=== PATIENT | male | born 1990 | race Caucasian/White ===

== ENCOUNTER 2017-02-12 15:04 | Emergency (ER) | payer OTHER ==
[2017-02-12] MEDS ORDERED: ONDANSETRON HCL 4 MG/2 ML VIAL ONE (15:43)
[2017-02-12 15:57] LABS: BLOOD UREA NITROGEN 19 mg/dL (9-20); CHLORIDE 107 mmol/L (98-107); EST GLOMERULAR FILTRATION RATE > 60 mL/min; GLUCOSE 133 mg/dL (70-100); POTASSIUM 3.9 mmol/L (3.5-5.1); SODIUM 140 mmol/L (137-145)
--- NOTE | 2017-02-12 17:15 | ER NURSING DOCUMENTATION ---
Nurse's Notes [facility] Name:Moises Jacinto Age:26 yrs Sex:Male :1990 Arrival Date:02/12/2017 Time:15:04 Bed1 Private MD:Jl Wallis Diagnosis:Vomiting - Dehydration Presentation: 02/12 15:08 Acuity: GARY 3 rh 15:39 Presenting complaint: Patient states: Nausea, vomiting diarrhea. Transition of care: lp Home. 15:39 Method Of Arrival: Private Vehicle lp Triage Assessment: 15:40 General: Appears in no apparent distress, Behavior is appropriate for age. Pain: lp Complains of pain in right upper quadrant and left upper quadrant. EENT: No deficits noted. GI: Abdomen is flat, non- distended Reports diarrhea, nausea, vomiting. Historical: - Allergies: No known drug Allergies; - Home Meds: 1. Adderall XR 20 mg oral cp24 1 cap once daily - PMHx: ADD; - PSHx: None; - Tetanus: < 10 years. - Ebola Screening: : Patient negative for fever greater than or equal to 101.5 degrees Fahrenheit, and additional compatible Ebola Virus Disease symptoms. Patient denies exposure to infectious person. Patient denies travel to an Ebola-affected area in the 21 days before illness onset. . - Immunization history: Flu Vaccine < 1 year. - Social history: Smoking status: Patient states was never smoker of tobacco. Screenin:41 Infectious Disease Risk None. Abuse screen: Denies threats or abuse. Denies injuries lp from another. Nutritional screening: No deficits noted. Assessment: 15:41 See Triage Assessment done by same RN. lp Vital Signs: 15:40 BP 109 / 72; Pulse 113; Resp 14; Temp 98.9; Pulse Ox 95% on R/A; Weight 75.3 kg; Height lp 6 ft. 6 in. (198.12 cm); Pain 2/10; 17:14 BP 109 / 71; Pulse 100; Resp 15; Pulse Ox 95% on R/A; Pain 1/10; rh 15:40 Body Mass Index 19.18 (75.30 kg, 198.12 cm) lp ED Course: 15:05 Patient arrived in ED. dp 15:05 Jl Wallis MD is Private Physician. dp 15:07 Kenney Resendez MD is Attending Physician. collins 15:08 Triage completed. 15:18 Guerita Rodriguez RN is Primary Nurse. lp 15:41 Valuables Remains with patient Patient has correct armband on for positive lp identification. Placed in gown. Bed in low position. 16:48 Jl Wallis MD is Referral Physician. Administered Medications: 15:34 Drug: Ondansetron 4 mg; Route: IVP; Infused Over: 2 mins; Site: right antecubital; lp 15:34 Drug: NS 0.9% 1000 ml; Route: IV; Rate: bolus; Site: right antecubital; lp 16:23 Follow up: Response: No adverse reaction; No change in condition; IV Status: Completed lp infusion; IV Intake: 1000ml 16:24 Drug: NS 0.9% 1000 ml; Route: IV; Rate: bolus; Site: right antecubital; lp Intake: 16:23 IV: 1000ml; Total: 1000ml. lp Outcome: 16:49 Discharge ordered by . 17:14 Discharged to home ambulatory, with family. 17:14 Condition: improved 17:14 Discharge Assessment: Patient awake, alert and oriented x 3. No cognitive and/or functional deficits noted. Patient verbalized understanding of disposition instructions. 17:14 Discharge instructions given to patient, Parent Instructed on discharge instructions, follow up and referral plans. medication usage, Demonstrated understanding of instructions, medications, Prescriptions given X 1. 17:14 IV D/Allan 17:15 Patient left the ED. Signatures: Guerita Rodriguez RN RN lp Meyer, John, MD MD jm Hofsess, Rachel Raeann Parish
--- NOTE | 2017-02-12 17:15 | ER PHYSICIAN DOCUMENTATION ---
Physician Documentation [facility] Name:Moises Jacinto Age:26 yrs Sex:Male :1990 Arrival Date:02/12/2017 Time:15:04 Bed1 Private MD:Jl Wallis ED, John Disposition: 02/12/17 16:49 Discharged to Home/Self Care. Impression: Vomiting - Dehydration. - Condition is Good. - Discharge Instructions: VOMITING (8y-Adult). - Prescriptions for Zofran 4 mg Oral Tablet - take 1-2 tablet by ORAL route every 4-6 hours As needed; 10 tablet. - Medical Reconciliation form form. - Follow up: Jl Wallis MD; When: 1 week; Reason: Continuance of care. - Problem is new. - Symptoms have improved. HPI: 02/12 18:48 This 26 yrs old Male presents to ER via Private Vehicle with complaints of jm Diarrhea. 18:48 The patient presents to the emergency department with nausea, with vomiting, with jm diarrhea, without any complaints of abdominal pain. Onset: The symptom(s)/episode began/occurred today, at 03:30. Possible causes: unknown. Associated signs and symptoms: Pertinent positives:. Historical: - Allergies: No known drug Allergies; - Home Meds: 1. Adderall XR 20 mg oral cp24 1 cap once daily - PMHx: ADD; - PSHx: None; - Tetanus: < 10 years. - Ebola Screening: : Patient negative for fever greater than or equal to 101.5 degrees Fahrenheit, and additional compatible Ebola Virus Disease symptoms. Patient denies exposure to infectious person. Patient denies travel to an Ebola-affected area in the 21 days before illness onset. . - Immunization history: Flu Vaccine < 1 year. - Social history: Smoking status: Patient states was never smoker of tobacco. Vital Signs: 15:40 BP 109 / 72; Pulse 113; Resp 14; Temp 98.9; Pulse Ox 95% on R/A; Weight 75.3 kg; Height lp 6 ft. 6 in. (198.12 cm); Pain 2/10; 17:14 BP 109 / 71; Pulse 100; Resp 15; Pulse Ox 95% on R/A; Pain 1/10; rh 15:40 Body Mass Index 19.18 (75.30 kg, 198.12 cm) MDM: 15:07 Patient medically screened. 02/12 15:58 Order name: BASIC METABOLIC PANEL; Complete Time: 16:23 EDMS Dispensed Medications: 15:34 Drug: Ondansetron 4 mg; Route: IVP; Infused Over: 2 mins; Site: right antecubital; lp 15:34 Drug: NS 0.9% 1000 ml; Route: IV; Rate: bolus; Site: right antecubital; lp 16:23 Follow up: Response: No adverse reaction; No change in condition; IV Status: Completed lp infusion; IV Intake: 1000ml 16:24 Drug: NS 0.9% 1000 ml; Route: IV; Rate: bolus; Site: right antecubital; lp Signatures: Guerita Rodriguez RN RN lp Meyer, John, MD MD jm Hofsess, Rachel
== END 2017-02-12 17:15 | disposition home or self-care (01) ==
LOC: ER 15:04
DX: E86.0 Dehydration (principal); R11.2 Nausea with vomiting, unspecified; R19.7 Diarrhea, unspecified
CPT/HCPCS: 80048; 96361; 96374; 99283; J2405